=== PATIENT | male | born 1975 | race Caucasian/White ===

== ENCOUNTER → 2017-07-25 | Outpatient (CLI) | payer OTHER ==
[~2017-07-25] VITALS: Ht 182.9 cm; Wt 102.1 kg
[~2017-07-25] MED LIST: ASPIRIN81 M2 PO; BISAC-EVAC10 MG RC; CEFEPIME-D2 GM/50 ML IV; CITALOPRAM HBR10 MG PO; DEPAKOTE ER500 MG PO; FLOMAX0.4 MG PO; FLONASE16 G1 BOTH NARES; KLOR-CON M2020 MEQ PO; LASIX20 MG PO; METRONIDAZOLE500 MG PO; NEURONTIN100 MG PO; OMEPRAZOLE40 M1 PO; OXYCODONE HCL5 MG PO; PAIN & FEVER325 MG PO; PANTOPRAZOLE SO40 MG PO; PERCOCET 5/31 TABLET PO; PROSCAR5 MG PO; ROBITUSSIN DM PO; SINEMET 10-1001 EACH PO; SINEMET 25-1001 EACH PO; TYLENOL WITH C1 EACH PO; VENTOLIN HFA18 GM IH; VITAMIN D250000 UNIT PO; XANAX0.25 MG PO; ZANTAC150 MG PO; ZOFRAN ODT4 MG PO; [UNRECOGNIZED DRUG - OTHER] PO
== END | disposition home or self-care (01) ==
LOC: AMB 12:18
DX: K21.0 Gastro-esophageal reflux disease with esophagitis (principal); K29.90 Gastroduodenitis, unspecified, without bleeding; J38.4 Edema of larynx; R49.0 Dysphonia; F17.200 Nicotine dependence, unspecified, uncomplicated; Z82.49 Family history of ischemic heart disease and other diseases of the circulatory system; Z83.3 Family history of diabetes mellitus; Z88.8 Allergy status to other drugs, medicaments and biological substances; Z88.5 Allergy status to narcotic agent
CPT/HCPCS: 88305; 88342 TC; J2250; J3010